=== PATIENT | male | born 1955 | race Caucasian/White ===

== ENCOUNTER 2021-04-01 20:13 | Emergency (ER) | payer OTHER, SELFPAY ==
[2021-04-01 20:18] VITALS: BP 195/88; PULSE 61; RESP 22; TEMP 37.3; O2SAT 97
--- NOTE | 2021-04-01 20:24 | DI.RAD.S_ITS ---
PROCEDURE: XR CHEST 2V INDICATIONS: cough TECHNIQUE: 2 views of the chest were acquired. COMPARISON: None. FINDINGS: Surgical changes and devices: None. Lungs and pleura: Lungs are clear. No pleural effusions or pneumothorax. Mediastinum: Mediastinal contours are normal. Heart size is normal. Bones and chest wall: No suspicious bony abnormalities. Soft tissues appear unremarkable. IMPRESSION: Reduced inspiratory volume, mild interstitial prominence. Mild or early pneumonia could be present. Dictated by: Bhavesh Avery M.D. on 04/01/2021 at 21:06 Approved by: Bhavesh Avery M.D. on 04/01/2021 at 21:06
[2021-04-01 20:51] LABS: COVID19 -Nasal RAPID Negative (Negative)
[2021-04-02] MEDS: ALBUTEROL/IPRATROPIUM 3 ML AMPUL INH (00:30)
[2021-04-02 00:35] VITALS: PULSE 61; RESP 20; O2SAT 97
[2021-04-02] MEDS: methylPREDNISolone 125 MG/2 ML VIAL IV (00:55)
[2021-04-02] MEDS: SODIUM CHLORIDE 0.9% 1,000 ML 1000 ML IV (00:55)
[2021-04-02 01:06] LABS: Add Manual Diff / Slide Review NO; Basophils Absolute Auto 200 /uL (0-100); Basophils Percent Auto 0.8 % (0-2); Eosinophils Absolute Auto 500 /uL (0-450); Eosinophils Percent Auto 2.5 % (2-4); Hematocrit 47.2 % (41-53); Hemoglobin 15.7 g/dL (13.5-17.5); Lymphocytes Absolute Auto 3900 /uL (1100-4500); Lymphocytes Percent Auto 20.5 % (25-40); Mean Corpuscular HGB Conc 33.3 % (30-36); Mean Corpuscular Volume 87.2 fL (80-100); Monocytes Absolute Auto 1200 /uL (0-900); Monocytes Percent Auto 6.3 % (3-14); Neutrophils Absolute Auto 13300 /uL (1500-7000); Neutrophils Percent Auto 69.9 % (50-75); Platelet Count 228 X10^3/uL (150-400); Red Blood Cell Count 5.42 X10^6/uL (4.5-5.9); Red Cell Distribution Width 13.4 % (11.6-14.8)
--- NOTE | 2021-04-02 01:07 | ED.URI ---
HPI - URI/Sore Throat General Chief Complaint: Upper Respiratory Symptoms Stated Complaint: cough Time Seen by Provider: 04/02/21 00:09 Source: patient Mode of arrival: Ambulatory History of Present Illness HPI Narrative: 55-year-old gentleman visiting from [place] complains of dry cough for 10 days that he notes has been present for 3 years intermittently. He is currently on a proton pump inhibitor for reflux with concerns that that may be contributing. He notes there has been significant increased atmosphere at smoke with his recent drive from [facility]. He recently change blood pressure medications back to an ARB/hydrochlorothiazide combination to help with his chronic lower extremity edema. He notes that he has been using his inhaler significantly more with minimal effect recently. He is not having any productivity with the cough and denies any fevers. Because of the severity of the cough he has noticed that he is somewhat hoarse. Incidentally noted to have bilateral arthritis pain in the knees that and bilateral steroid injections into the knees a week ago. He notes that he had severe case of COVID 1 and half years ago and since that time has had increased lower extremity edema and worsened. Related Data Home Medications Medication Instructions Recorded Confirmed VANCOMYCIN HCL (Vancocin HCl) 250 mg PO QID #0 04/27/11 ciprofloxacin HCl 500 mg tablet 500 mg PO Q12H #0 04/27/11 (Cipro) Previous Rx's Medication Instructions Recorded albuterol sulfate 90 mcg/actuation 2 inh INHALATION QID PRN #8.5 g 04/02/21 aerosol inhaler doxycycline hyclate 100 mg capsule 100 mg PO BID #14 cap 04/02/21 prednisone 20 mg tablet 20 mg PO DAILY #5 tab 04/02/21 Allergies Allergy/AdvReac Type Severity Reaction Status Date / Time metronidazole Allergy Verified 04/02/21 00:33 Review of Systems Review of Systems Narrative: Remainder of complete review of systems is otherwise unremarkable except for that included in the HPI. Patient History Medical History (Updated 04/02/21 @ 06:17 by Elsa Subramanian MD) Acid reflux Asthma Chronic cough COVID-19 Social History Smoking Status: Never smoker Smoking Status: Never smoker Exam Narrative Exam Narrative: General: Healthy appearing, in no acute distress. Able to give a complete and coherent history. Well-nourished well-developed HEENT: Moist mucous membranes, normal sclera with reactive pupils, voice is somewhat hoarse Neck: No JVD, supple Respiratory: Lungs are clear to auscultation, no significant wheezing is appreciated today. No rales no rhonchi. Full and symmetrical air movement Cardiac: Regular rate and rhythm no murmurs no bruits Abdomen: Soft, nontender, good bowel tones, no flank pain Skin: Warm and dry, no rashes Neurologic: Grossly neurologically intact with no obvious asymmetries or abnormalities Extremities: No trauma, well perfused Psych: Cooperative, appropriate insight and affect Initial Vital Signs Initial Vital Signs: Vital Signs Temperature 99.1 F 04/01/21 20:18 Pulse Rate 61 04/01/21 20:18 Respiratory Rate 22 04/01/21 20:18 Blood Pressure 195/88 H 04/01/21 20:18 Pulse Oximetry 97 04/01/21 20:18 Course Orders Ordered: ED Orders 04/02/21 00:50 Complete Blood Count AUTO DIFF Stat Comprehensive Metabolic Panel Stat NT-proBNP (BNP-Adult 18+) Stat Discontinued Medications Albuterol/Ipratropium (Albuterol/Ipratropium 3 Ml Ampul) 3 ml INH NOW ONE Stop: 04/02/21 00:10 Last Admin: 04/02/21 00:30 Dose: 3 ml Documented by: JANA Doxycycline Hyclate (Doxycycline Hyclate 100 Mg Tablet) 100 mg PO NOW ONE Stop: 04/02/21 01:40 Last Admin: 04/02/21 01:44 Dose: 100 mg Documented by: BRETT Sodium Chloride (Normal Saline 0.9%) 1,000 mls @ 1,000 mls/hr IV BOLUS ONE Stop: 04/02/21 01:08 Last Infusion: 04/02/21 01:33 Dose: 0 mls/hr Documented by: Admin: 04/02/21 00:55 Dose: 1,000 mls/hr Documented by: JANA Methylprednisolone (Methylprednisolone 125 Mg/2 Ml Vial) 125 mg IV NOW ONE Stop: 04/02/21 00:10 Last Admin: 04/02/21 00:55 Dose: 125 mg Documented by: JANA Vital Signs Vital signs: Vital Signs - 8 hr 04/02/21 00:35 04/02/21 01:49 Pulse Rate 61 68 Respiratory Rate 20 24 Blood Pressure 168/77 H Pulse Oximetry 97 95 MDM - URI/Sore Throat Lab Data Result diagrams: 04/02/21 00:50 04/02/21 00:50 Labs: Lab Results 04/01/21 04/02/21 04/02/21 Range/Units 20:27 00:50 00:50 WBC 19.0 H (4.5-11.0) X10^3/uL RBC 5.42 (4.5-5.9) X10^6/uL Hgb 15.7 (13.5-17.5) g/dL Hct 47.2 (41-53) % MCV 87.2 (80-100) fL MCH 29.0 (26-34) PG MCHC 33.3 (30-36) % RDW 13.4 (11.6-14.8) % Plt Count 228 (150-400) X10^3/uL Neut % (Auto) 69.9 (50-75) % Lymph % (Auto) 20.5 L (25-40) % [place] % (Auto) 6.3 (3-14) % Eos % (Auto) 2.5 (2-4) % Baso % (Auto) 0.8 (0-2) % Neut # (Auto) 28085 H (9929-0817) /uL Lymph # (Auto) 3900 (4452-3433) /uL [place] # (Auto) 1200 H (0-900) /uL Eos # (Auto) 500 H (0-450) /uL Baso # (Auto) 200 H (0-100) /uL Sodium 137 (137-145) mmol/L Potassium 4.3 (3.4-5.1) mmol/L Chloride 103 (98-107) mmol/L Carbon Dioxide 28 (22-32) mmol/L BUN 20 (9-20) mg/dL Creatinine 0.85 (0.66-1.25) mg/dL Estimated GFR > 60.0 (>60) mL/min BUN/Creatinine Ratio 23.5 H (6-22) Glucose 147 H (80-110) mg/dL Calcium 9.3 (8.4-10.2) mg/dL Total Bilirubin 1.6 H (0.2-1.3) mg/dL AST 51 (17-59) IU/L ALT 57 H (<50) IU/L Alkaline Phosphatase 102 (38-126) U/L NT-Pro-B Natriuret Pep 40 (<125) pg/mL Total Protein 7.0 (6.3-8.2) g/dL Albumin 3.9 (3.5-5.0) g/dL Globulin 3.1 (1.7-4.1) g/dL Albumin/Globulin Ratio 1.3 (1.0-2.8) SARS-CoV-2 (PCR) Negative (Negative) Imaging Data Chest x-ray: Radiologist's Impression: FINDINGS: Surgical changes and devices: None. Lungs and pleura: Lungs are clear. No pleural effusions or pneumothorax. Mediastinum: Mediastinal contours are normal. Heart size is normal. Bones and chest wall: No suspicious bony abnormalities. Soft tissues appear unremarkable. IMPRESSION: Reduced inspiratory volume, mild interstitial prominence. Mild or early pneumonia could be present. Dictated by: Bhavesh Avery M.D. on 04/01/2021 at 21:06 MDM Narrative Medical decision making narrative: 65-year-old gentleman presents with cough that has been getting worse for 10 days. At this point there is no evidence of COVID, pneumothorax, acute coronary syndrome or congestive heart failure. I think that his cough is multi factorial. I suspect there is a bacterial component given the increase in symptoms by day [address] on doxycycline for this. Of the smoker's likely cause asthma exacerbation so steroids will be added. I think that the reflux is likely contributing to all overall symptoms and that he continue with his proton pump inhibitor. At this point there are no signs of sepsis or impending respiratory failure and he is safe for home discharge Discharge Plan Departure Patient Disposition: Home Clinical Impression: Chronic GERD Pneumonia Qualifiers: Pneumonia type: due to unspecified organism Laterality: bilateral Lung location: unspecified part of lung Qualified Code(s): J18.9 - Pneumonia, unspecified organism Asthma exacerbation Qualifiers: Asthma severity: mild Asthma persistence: persistent Qualified Code(s): J45.31 - Mild persistent asthma with (acute) exacerbation Instructions: DI for Pneumonia -- Adult Activity Restrictions/Additional Instructions: Thank you for coming in today I think your cough has a couple of different components. I do think that you are developing a mild pneumonia and I am going to ask you to complete a course of doxycycline for this. The pneumonia is exacerbating your asthma and for that I am going to suggest 5 days of steroids. The steroids that you had injected into your knees last week are making your white blood cell count elevated. I suspect all of the recent atmospheric smoke as well as your chronic heartburn are also contributing to the increased wheeze. Fortunately, you do not have another bout of COVID and there is no signs of congestive heart failure or heart attack or heart attack like syndrome. If you find that your symptoms are worsening, please feel free to return to the ER. I hope the rest of your visit to [facility] goes well. Prescriptions: New prednisone 20 mg tablet 20 mg PO DAILY Qty: 5 RF: 0 doxycycline hyclate 100 mg capsule 100 mg PO BID Qty: 14 RF: 0 albuterol sulfate 90 mcg/actuation HFA aerosol inhaler 2 inh inhalation QID PRN (Reason: shortness of breath or wheezing) Qty: 8.5 RF: 0 No Action ciprofloxacin HCl [Cipro] 500 MG tablet 500 mg PO Q12H Qty: 0 RF: 0 VANCOMYCIN HCL (Vancocin HCl) 250 mg PO QID Qty: 0 RF: 0
[2021-04-02 01:08] LABS: Alanine Aminotransferase 57 IU/L (<50); Albumin 3.9 g/dL (3.5-5.0); Albumin Globulin Ratio 1.3 (1.0-2.8); Alkaline Phosphatase 102 U/L (38-126); Aspartate Aminotransferase 51 IU/L (17-59); BUN Creatinine Ratio 23.5 (6-22); Bilirubin Total 1.6 mg/dL (0.2-1.3); Blood Urea Nitrogen 20 mg/dL (9-20); Calcium 9.3 mg/dL (8.4-10.2); Carbon Dioxide 28 mmol/L (22-32); Chloride 103 mmol/L (98-107); Estimated Glomerular Filt Rate > 60.0 mL/min (>60); Globulin 3.1 g/dL (1.7-4.1); Glucose 147 mg/dL (80-110); Potassium 4.3 mmol/L (3.4-5.1); Sodium 137 mmol/L (137-145)
[2021-04-02 01:12] LABS: HEMOLYSIS 57 (0-50)
[2021-04-02 01:23] LABS: NT-proBNP (BNP-Adult 18+) 40 pg/mL (<125)
[2021-04-02] MEDS: DOXYCYCLINE HYCLATE 100 MG TABLET PO (01:44)
[2021-04-02 01:49] VITALS: BP 168/77; PULSE 68; RESP 24; O2SAT 95
== END 2021-04-02 01:49 | disposition home or self-care (01) ==
PROVIDERS: Emergency Provider Emergency Medicine
DX: K21.9 Gastro-esophageal reflux disease without esophagitis (principal); J18.9 Pneumonia, unspecified organism; J45.31 Mild persistent asthma with (acute) exacerbation; Z20.822 Contact with and (suspected) exposure to COVID-19
CPT/HCPCS: 36415; 71046; 80053; 83880; 85025; 87635; 94150; 94640; 96361; 96374; 99284; C9803; J2930